=== PATIENT | female | born 1995 | race Caucasian/White ===

== ENCOUNTER 2019-06-15 13:20 | Observation (INO) | payer SELFPAY ==
[~2019-06-15] VITALS: Ht 157.5 cm; Wt 93.0 kg
[2019-06-15 14:53] VITALS: BP 133/81
== END 2019-06-15 16:15 | disposition home or self-care (01) ==
LOC: 4S 13:20
PROVIDERS: ADMIT Obstetrics & Gynecology; ATTEND Obstetrics & Gynecology
DX: O36.8130 Decreased fetal movements, third trimester, not applicable or unspecified (principal); Z3A.39 39 weeks gestation of pregnancy
CPT/HCPCS: 76811; 81002; G0378

== ENCOUNTER 2019-06-24 08:40 | Inpatient (IN) | payer MEDICAID ==
[~2019-06-24] VITALS: Ht 160 cm; Wt 92.5 kg
[2019-06-24 12:24] LABS: BASOPHILS % (AUTO) 0.3 % (0.0-2.0); EOSINOPHILS % (AUTO) 0.4 % (1.0-6.0); HEMATOCRIT 38.6 % (36-46); HEMOGLOBIN 12.9 g/dL (12.0-16.0); LYMPHOCYTES # (AUTO) 1.5 K/uL (1.0-4.8); MEAN CORPUSCULAR HEMOGLOBIN 30.1 pg (26.0-34.0); MEAN CORPUSCULAR HGB CONC 33.6 G/dL (31.0-37.0); MEAN CORPUSCULAR VOLUME 90 fL (80-100); MONOCYTES # (AUTO) 0.4 K/uL (0.1-1.0); MONOCYTES % (AUTO) 5.7 % (2.0-9.0); NEUTROPHILS # (AUTO) 4.6 K/uL (1.8-7.7); NEUTROPHILS % (AUTO) 70.6 % (40.0-70.0); PLATELET COUNT (AUTO)-OB 182 K/uL (150-450); RED BLOOD CELL COUNT(AUTO) 4.31 MIL/uL (4.00-5.20); RED CELL DISTRIBUTION WIDTH 13.9 % (11.5-14.5)
[2019-06-24] MEDS ORDERED: RINGERS SOLUTION,LACTATED 1,000 ML IV PRN (16:42)
[2019-06-24] MEDS ORDERED: CITRIC ACID/SODIUM CITRATE 30 ML SOLUTION UDCUP PO PRN (16:45)
[2019-06-24] MEDS ORDERED: METOCLOPRAMIDE HCL 5 MG/ML 2 ML VIAL IVP PRN (16:45)
[2019-06-24] MEDS: RINGERS SOLUTION,LACTATED 1,000 ML IV SCH ×2 (17:07→18:41)
[2019-06-24] MEDS ORDERED: PREN-217 PO (18:26)
[2019-06-24] MEDS ORDERED: OXYGEN THERAPY IH SCH (20:00)
[2019-06-24] MEDS: NALBUPHINE HCL 10 MG/ML VIAL IVP PRN (21:13)
[2019-06-24] MEDS ORDERED: TERBUTALINE SULFATE 1 MG/ML VIAL SQ ONE (21:30)
[2019-06-25] MEDS: RINGERS SOLUTION,LACTATED 1,000 ML IV SCH (03:11)
[2019-06-25] MEDS: NALBUPHINE HCL 10 MG/ML VIAL IVP PRN (03:11)
[2019-06-25] MEDS ORDERED: FentaNYL CITRATE-PF 100 MCG/2 ML VIAL ONE (08:37)
[2019-06-25] MEDS ORDERED: BUPIVACAINE HCL/DEX-WATER/PF 0.75% 2 ML AMP ONE (08:37)
[2019-06-25] MEDS ORDERED: MORPHINE SULFATE/PF 0.5 MG/ML 10 ML AMP ONE (08:37)
[2019-06-25] MEDS ORDERED: ACETAMINOPHEN 1000 MG/ISO-OSM 100 ML IV ONE ×2 (08:37→12:09)
[2019-06-25] MEDS ORDERED: ONDANSETRON HCL 4 MG/2 ML VIAL IVP PRN (09:15)
[2019-06-25] MEDS ORDERED: DEXAMETHASONE SOD PHOS 4 MG/ML VIAL IVP PRN (09:15)
[2019-06-25] MEDS ORDERED: DiphenhydrAMINE HCL 50 MG/ML VIAL IVP PRN (09:15)
[2019-06-25] MEDS ORDERED: NALBUPHINE HCL 10 MG/ML VIAL IVP PRN (09:15)
[2019-06-25] MEDS ORDERED: ACETAMINOPHEN/CODEINE 300-30 MG TABLET PO PRN ×2 (10:00)
[2019-06-25] MEDS ORDERED: LANOLIN 7 GM OINTMENT TP PRN (10:00)
[2019-06-25] MEDS ORDERED: DiphenhydrAMINE HCL 50 MG/ML VIAL ONE (11:10)
[2019-06-25] MEDS: ACETAMINOPHEN 1000 MG/ISO-OSM 100 ML IV SCH ×2 (12:17→22:01)
[2019-06-25] MEDS: DEXTROSE 5%-0.45% SODIUM CHL 1,000 ML IV SCH ×2 (14:58→22:01)
[2019-06-25] MEDS ORDERED: OXYGEN THERAPY IH SCH (20:00)
[2019-06-26 03:24] VITALS: BP 133/74
[2019-06-26] MEDS ORDERED: EPHEDrine SULFATE 50 MG/ML VIAL IM ONE (05:37)
[2019-06-26] MEDS ORDERED: 0.9% SODIUM CHLORIDE 10 ML VIAL IVP ONE (05:37)
[2019-06-26] MEDS ORDERED: ONDANSETRON HCL 4 MG/2 ML VIAL IVP ONE (05:37)
[2019-06-26] MEDS ORDERED: OXYTOCIN 10 UNITS/ML VIAL IM ONE (05:37)
[2019-06-26] MEDS: IBUPROFEN 800 MG TABLET PO SCH ×3 (08:53→23:47)
[2019-06-26] MEDS: MAGNESIUM HYDROXIDE SUSPENSION 30 ML UDCUP PO SCH ×2 (08:53→20:28)
[2019-06-26] MEDS: DEXTROSE 5%-0.45% SODIUM CHL 1,000 ML IV SCH (08:53)
[2019-06-27] MEDS: IBUPROFEN 800 MG TABLET PO SCH ×3 (05:37→17:55)
[2019-06-27] MEDS ORDERED: RINGERS SOLUTION,LACTATED 1,000 ML IV ONE (08:10)
[2019-06-28] MEDS: IBUPROFEN 800 MG TABLET PO SCH ×2 (00:18→06:28)
[2019-06-28] MEDS ORDERED: IBUP-2071 PO (11:24)
[2019-06-28] MEDS ORDERED: DOCU-275 PO (11:25)
== END 2019-06-28 12:30 | disposition home or self-care (01) | DRG 540 ==
LOC: 4S 08:40 → OBSVTOIN 08:40 → 4S 06-25 08:55
PROVIDERS: ADMIT Obstetrics & Gynecology; ATTEND Obstetrics & Gynecology
PROC: 10D00Z1 Extraction of Products of Conception, Low, Open Approach (ICD-10-PCS; principal; 2019-06-25)
DX: O34.211 Maternal care for low transverse scar from previous cesarean delivery (principal); O69.82X0 Labor and delivery complicated by other cord entanglement, without compression, not applicable or unspecified; Z37.0 Single live birth; Z3A.39 39 weeks gestation of pregnancy
CPT/HCPCS: 80307; 80361; 86592; 86762; 86850; 86900; 86901; 87340; J0131; J0690; J1200; J2274; J2300; J2405; J2590; J2765; J3010; J3105; J3490; J7120